=== PATIENT | female | born 2000 | race Caucasian/White ===

== ENCOUNTER 2020-06-01 16:26 | Emergency (ER) | payer OTHER, SELFPAY ==
[~2020-06-01] VITALS: Ht 154.9 cm; Wt 116.6 kg
--- NOTE | 2020-06-01 16:30 | NUR ---
Pt placed in tent at this time
--- NOTE | 2020-06-01 16:32 | NUR ---
Pt brought by self,A&OX4, pt presents to ER with cough/congestion ,N/V and weakness, afebrile, skin pink and warm, cap refill <3, VSS.
[2020-06-01 17:13] VITALS: BP_SYST 137
[2020-06-01] MEDS ORDERED: ONDANSETRON 4 MG ODT TAB PO ONE (17:15)
--- NOTE | 2020-06-01 18:15 | NUR ---
Dr Ingram L assessing patient in the triage room
--- NOTE | 2020-06-01 18:51 | NUR ---
Patient given written and verbal discharge instructions and verbalizes understanding. ER MD discussed with patient the results and treatment provided. Patient in stable condition. ID arm band removed. Rx of Promethazine,Ibuprofen,Zofran given. Patient educated on pain management and to follow up with PMD. Pain Scale 2/10. Opportunity for questions provided and answered. Medication side effect fact sheet provided.
== END 2020-06-01 18:49 | disposition home or self-care (01) ==
LOC: SED 16:26
DX: R05 Cough (principal); R07.89 Other chest pain; M79.18 Myalgia, other site; Z20.828 Contact with and (suspected) exposure to other viral communicable diseases
CPT/HCPCS: 71045; 81002; 81025; 99284; Q0162; U0003

== ENCOUNTER → 2022-06-11 | Emergency (ER) | payer OTHER | END | disposition home or self-care (01) | LOC: SED 13:14 | DX: K62.5 Hemorrhage of anus and rectum (principal); Z53.21 Procedure and treatment not carried out due to patient leaving prior to being seen by health care provider ==